=== PATIENT | female | born 2000 | race Caucasian/White ===

== ENCOUNTER → 2019-07-03 11:15 | Outpatient (BNVA) | payer SELFPAY | PROVIDERS: Family Provider Nurse Practitioner Family; PCP Nurse Practitioner Family; Visit Provider Nurse Practitioner Women's Health | DX: R10.2 Pelvic and perineal pain (principal); N34.3 Urethral syndrome, unspecified; R87.612 Low grade squamous intraepithelial lesion on cytologic smear of cervix (LGSIL); Z11.3 Encounter for screening for infections with a predominantly sexual mode of transmission | CPT/HCPCS: 87491; 87591; 87661 ==

== ENCOUNTER → 2019-07-19 13:06 | Outpatient (BNVA) | payer SELFPAY | PROVIDERS: Family Provider Nurse Practitioner Family; PCP Nurse Practitioner Family; Visit Provider Nurse Practitioner Women's Health | DX: R87.612 Low grade squamous intraepithelial lesion on cytologic smear of cervix (LGSIL) (principal); N92.0 Excessive and frequent menstruation with regular cycle | CPT/HCPCS: 76830 ==

== ENCOUNTER → 2020-03-31 10:03 | Outpatient (BNVA) | payer BC, MEDICAID, SELFPAY | PROVIDERS: Family Provider Nurse Practitioner Family; PCP Nurse Practitioner Family; Visit Provider Nurse Practitioner Women's Health | DX: O99.341 Other mental disorders complicating pregnancy, first trimester (principal); F32.9 Major depressive disorder, single episode, unspecified; Z78.9 Other specified health status; Z82.79 Family history of other congenital malformations, deformations and chromosomal abnormalities; Z83.2 Family history of diseases of the blood and blood-forming organs and certain disorders involving the immune mechanism | CPT/HCPCS: 81000 ==

== ENCOUNTER → 2020-04-14 11:02 | Outpatient (BNVA) | payer BC, MEDICAID, SELFPAY | PROVIDERS: Family Provider Nurse Practitioner Family; PCP Nurse Practitioner Family; Visit Provider Obstetrics & Gynecology | DX: O99.340 Other mental disorders complicating pregnancy, unspecified trimester (principal); F32.9 Major depressive disorder, single episode, unspecified; F41.9 Anxiety disorder, unspecified; G89.29 Other chronic pain | CPT/HCPCS: 80307; 81000; 85027; 86592; 86762; 86803; 86850; 86900; 87086; 87340; 87806 ==

== ENCOUNTER → 2020-04-27 11:00 | Outpatient (BNVA) | payer BC, MEDICAID, SELFPAY | PROVIDERS: Family Provider Nurse Practitioner Family; PCP Nurse Practitioner Family; Visit Provider Obstetrics & Gynecology | DX: Z34.01 Encounter for supervision of normal first pregnancy, first trimester (principal); R87.612 Low grade squamous intraepithelial lesion on cytologic smear of cervix (LGSIL); J45.909 Unspecified asthma, uncomplicated; M54.9 Dorsalgia, unspecified; G89.29 Other chronic pain; F41.9 Anxiety disorder, unspecified; F32.9 Major depressive disorder, single episode, unspecified; Z82.79 Family history of other congenital malformations, deformations and chromosomal abnormalities | CPT/HCPCS: 81000; 87491; 87591; 88175 ==

== ENCOUNTER → 2020-05-27 08:06 | Outpatient (BNVA) | payer BC, MEDICAID, SELFPAY | PROVIDERS: Family Provider Nurse Practitioner Family; PCP Nurse Practitioner Family; Visit Provider Nurse Practitioner Women's Health | DX: O99.340 Other mental disorders complicating pregnancy, unspecified trimester (principal); F41.9 Anxiety disorder, unspecified; O26.899 Other specified pregnancy related conditions, unspecified trimester; F32.9 Major depressive disorder, single episode, unspecified; M54.9 Dorsalgia, unspecified; G89.29 Other chronic pain; Z82.79 Family history of other congenital malformations, deformations and chromosomal abnormalities | CPT/HCPCS: 81000; 82105 ==

== ENCOUNTER → 2020-07-22 09:49 | Outpatient (BNVA) | payer BC, MEDICAID, SELFPAY | PROVIDERS: Family Provider Nurse Practitioner Family; PCP Nurse Practitioner Family; Visit Provider Nurse Practitioner Women's Health | DX: Z34.02 Encounter for supervision of normal first pregnancy, second trimester (principal); Z82.79 Family history of other congenital malformations, deformations and chromosomal abnormalities | CPT/HCPCS: 81000 ==

== ENCOUNTER → 2020-08-19 14:07 | Outpatient (BNVA) | payer BC, MEDICAID, SELFPAY | PROVIDERS: Family Provider Nurse Practitioner Family; PCP Nurse Practitioner Family; Visit Provider Obstetrics & Gynecology | DX: O36.60X0 Maternal care for excessive fetal growth, unspecified trimester, not applicable or unspecified (principal); J45.909 Unspecified asthma, uncomplicated; M54.9 Dorsalgia, unspecified; G89.29 Other chronic pain; F41.9 Anxiety disorder, unspecified; F32.9 Major depressive disorder, single episode, unspecified; O99.340 Other mental disorders complicating pregnancy, unspecified trimester | CPT/HCPCS: 81000; 82950; 85027 ==

== ENCOUNTER → 2020-09-03 13:30 | Outpatient (BNVA) | payer BC, MEDICAID, SELFPAY | PROVIDERS: Family Provider Nurse Practitioner Family; PCP Nurse Practitioner Family; Visit Provider Obstetrics & Gynecology | DX: O36.60X0 Maternal care for excessive fetal growth, unspecified trimester, not applicable or unspecified (principal); O99.013 Anemia complicating pregnancy, third trimester | CPT/HCPCS: 81000 ==

== ENCOUNTER → 2020-09-15 08:49 | Outpatient (BNVA) | payer BC, MEDICAID, SELFPAY | PROVIDERS: Family Provider Nurse Practitioner Family; PCP Nurse Practitioner Family; Visit Provider Obstetrics & Gynecology | DX: O99.013 Anemia complicating pregnancy, third trimester (principal); O36.60X0 Maternal care for excessive fetal growth, unspecified trimester, not applicable or unspecified | CPT/HCPCS: 81000 ==

== ENCOUNTER → 2020-09-30 13:04 | Outpatient (BNVA) | payer BC, MEDICAID, SELFPAY | PROVIDERS: Family Provider Nurse Practitioner Family; PCP Nurse Practitioner Family; Visit Provider Nurse Practitioner Women's Health | DX: O99.013 Anemia complicating pregnancy, third trimester (principal); O36.60X0 Maternal care for excessive fetal growth, unspecified trimester, not applicable or unspecified; J45.909 Unspecified asthma, uncomplicated; M54.9 Dorsalgia, unspecified; G89.29 Other chronic pain; F41.9 Anxiety disorder, unspecified; F32.9 Major depressive disorder, single episode, unspecified | CPT/HCPCS: 81000 ==

== ENCOUNTER → 2020-10-14 10:03 | Outpatient (BNVA) | payer BC, MEDICAID, SELFPAY | PROVIDERS: PCP Nurse Practitioner Family; Visit Provider Obstetrics & Gynecology | DX: O99.013 Anemia complicating pregnancy, third trimester (principal); O36.60X0 Maternal care for excessive fetal growth, unspecified trimester, not applicable or unspecified; J45.909 Unspecified asthma, uncomplicated; M54.9 Dorsalgia, unspecified; G89.29 Other chronic pain; F41.9 Anxiety disorder, unspecified; F32.9 Major depressive disorder, single episode, unspecified | CPT/HCPCS: 81000; 87081 ==

== ENCOUNTER → 2020-10-19 13:15 | Outpatient (BNVA) | payer BC, MEDICAID, SELFPAY | PROVIDERS: PCP Nurse Practitioner Family; Visit Provider Obstetrics & Gynecology | DX: O99.013 Anemia complicating pregnancy, third trimester (principal); O36.60X0 Maternal care for excessive fetal growth, unspecified trimester, not applicable or unspecified; D64.9 Anemia, unspecified; Z3A.00 Weeks of gestation of pregnancy not specified | CPT/HCPCS: 81000 ==

== ENCOUNTER → 2020-10-27 08:51 | Outpatient (BNVA) | payer BC, MEDICAID, SELFPAY | PROVIDERS: PCP Nurse Practitioner Family; Visit Provider Obstetrics & Gynecology | DX: Z34.80 Encounter for supervision of other normal pregnancy, unspecified trimester (principal) | CPT/HCPCS: 81000 ==

== ENCOUNTER → 2020-10-29 11:00 | Outpatient (BNVA) | payer BC, MEDICAID, SELFPAY | PROVIDERS: PCP Nurse Practitioner Family; Visit Provider Obstetrics & Gynecology | DX: Z34.02 Encounter for supervision of normal first pregnancy, second trimester (principal); Z20.822 Contact with and (suspected) exposure to COVID-19 | CPT/HCPCS: 87635 ==

== ENCOUNTER 2020-11-02 19:16 | Inpatient (IN) | payer BC, MEDICAID, SELFPAY ==
--- NOTE | 2020-10-07 13:56 | P.ANESASSM_ITS ---
Pre-Anesthetic Assessment Pre-Anesthetic Assessment: Height/Weight: Height 1.63 m Preop Diagnosis: IUP Proposed Procedure: Epidural Familial anesthetic complications: none Social: Social History: No alcohol and No tobacco Exam: Pre-Anes Outpt Exam: alert, oriented x 3, clear to auscultation bilaterally and regular rate & rhythm Airway: Cervical ROM: WNL MP: 3 Dentition: Full Pulmonary: Pulmonary: Asthma Musc/skel: Comments: L5-S1 fusion in 2014 and 2016 d/t spondylolisthesis? Anesthetic Plan: ASA status: 2 Anesthesia: Regional (specify below) Risk of > 500 ml blood loss (7ml/kg in children): Yes, adequate IV access and fluids planned Other Pertinent Information: patient desires natural childbirth, patient informed prior surgery may make placement of epidural more difficult or increase risk of PDPH PFSH Anesthesia PFSH: Medical History Anxiety and depression Diagnosed in 2019 when she went to [employer] school. She was on Cymbalta prior to the and got switched to fluoxetine at 8 weeks. She states that she is doing okay with 10 mg once a day. Asthma Diagnosed in the second grade. She uses albuterol inhalers as needed. Last use was in January 2021. Usually uses it a couple of times every month. 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 Has had 2 back surgery and periodically has back spasms and pain. She does not take anything for pain regularly other than ibuprofen and Tylenol as needed No pertinent past medical history Denies diabetes, asthma, hypertension, seizures, DVT/PE. PCP: Adelina Azar COLLECTION SPECIALIST Surgical History H/O foot surgery 2015--removal of glass shards after she stepped on a picture frame performed by Dr. Kamara History of appendectomy Open procedure via right lower quadrant incision at fourth grade History of back surgery X 2----> had rods and screws placed between L5 and S1 and spinal fusion performed by Dr. Reynolds first in April 2015 and then in September 2015. Family History Mother Hypertension Family/Other Breast cancer Maternal great aunt--dx age 40's Denies family history of Colon cancer Ovarian cancer Diabetes Heart disease Hyperlipidemia Family history of thyroid problem Uterine cancer Stroke Data Anesthesia Cardiac Studies: No Data to Display
[2020-11-02] VITALS (15 sets, daily range): BP systolic 118–141; BP diastolic 64–81; PULSE 76–101; RESP 16; TEMP 36.6; BMI 29.2
[2020-11-02 20:21] LABS: Basophils % 0.2 %; Eosinophils # 0.1 10^3/uL (0.0-0.8); Eosinophils % 0.7 %; Hematocrit 34.8 % (37.0-47.0); Hemoglobin 11.7 g/dL (11.5-15.3); Lymphocytes # 2.2 10^3/uL (0.8-4.8); Lymphocytes % 19.1 %; Mean Corpuscular HGB Conc 33.6 g/dL (30.0-36.0); Mean Corpuscular Hemoglobin 29.3 pg (28.0-34.0); Monocytes # 0.8 10^3/uL (0.2-0.9); Neutrophils # 8.16 10^3/uL (1.8-7.7); Neutrophils % 72.3 %; Nucleated Red Blood Cells % 0 %; Platelet Count 196 10^3/cmm (130-400); Red Cell Distribution Width 14.7 % (12.1-15.1); White Blood Count 11.3 10^3/uL (4.0-10.0)
[2020-11-02] MEDS: lactated ringers 500 ML 999 ML IV (20:41)
[2020-11-02] MEDS: dextrose 5%-lactated ringers 1,000 ML 125 ML IV (21:11)
[2020-11-02] MEDS: miSOPROStol 100 mcg tablet 25 MCG VAGINAL (21:56)
[2020-11-02] MEDS: lactated ringers 1,000 ML 999 ML IV (23:58)
[2020-11-03] VITALS (92 sets, daily range): BP systolic 103–151; BP diastolic 55–89; PULSE 61–102; RESP 16–18; TEMP 36.1–37.4; O2SAT 86–100
[2020-11-03] MEDS: oxytocin 30 UNIT/500 ML BAG IV (05:18)
[2020-11-03] MEDS: dextrose 5%-lactated ringers 1,000 ML 125 ML IV ×2 (05:18→11:09)
[2020-11-03] MEDS: fentaNYL 50 mcg/mL INJ 2mL IVP ×2 (07:32→08:53)
[2020-11-03] MEDS: lactated ringers 1,000 ML 999 ML IV ×2 (08:26→09:27)
--- NOTE | 2020-11-03 08:55 | ANES.PAUD2 ---
Pre-Anesthetic Update Pre-Anesthetic Assessment: Date of Surgery/Procedure: 11/03/20 Preop Diagnosis: IUP Any changes to Pre-Anesthetic Assessment?: No Labs Last 48hrs: Laboratory Results - last 48 hr 11/02/20 20:05 WBC 11.3 H RBC 4.00 L Hgb 11.7 Hct 34.8 L MCV 87.0 MCH 29.3 MCHC 33.6 RDW 14.7 Plt Count 196 MPV 11.0 H Neut % (Auto) 72.3 Lymph % (Auto) 19.1 [place] % (Auto) 7.0 Eos % (Auto) 0.7 Baso % (Auto) 0.2 Neut # (Auto) 8.16 H Lymph # (Auto) 2.2 [place] # (Auto) 0.8 Eos # (Auto) 0.1 Baso # (Auto) 0.0 Nucleated RBC % (a uto) 0 Nucleated RBCs # 0.0 Vitals: Temperature 97.0 F L 11/03/20 09:46 Pulse Rate 79 11/03/20 10:21 Respiratory Rate 18 11/03/20 08:53 Respiratory Effort Non-Labored 11/03/20 08:53 Respiratory Depth Normal 11/03/20 08:53 Respiratory Patter n 11/03/20 08:53 Blood Pressure 112/74 11/03/20 10:21 Pulse Oximetry 91 11/03/20 10:05 Oxygen Delivery Me thod 11/02/20 19:05 Exam: Pre-Anes Outpt Exam: alert, oriented x 3, clear to auscultation bilaterally and regular rate & rhythm Cardiac Studies: No Data to Display
--- NOTE | 2020-11-03 09:00 | ANES.PROC ---
Anesthesia Procedures Procedure/Date: 11/03/20 Epidural: Time Out Performed: Yes Consents Signed: Procedure Consent and NPO Consent Consent: from patient, risks and benefits reviewed and patient agrees to proceed Lumbar Level: L3-L4 Epidural position: sitting Epidural procedure: sterile prep of area, 1% lidocaine to numb the area, negative for paresthesia passed, neg for paresthesia, test dose given, 1.5% xylocaine 1:200k epi, placed PCEA, no systemic response, sterile dressing applied, L.U.D. no apparent complications and 0.2% Ropiavacaine @ mls/hr (13)
[2020-11-03] MEDS: ondansetron 2 mg/ML SDV 2 mL 4 MG IVP (12:37)
[2020-11-03] MEDS: lidocaine 2% INJ 20 mL INJECTION (15:14)
[2020-11-03] MEDS: methylergonovine 0.2 mg/mL INJ 1 mL IM (15:25)
[2020-11-03] MEDS: miSOPROStol 200 mcg Tablet 800 MCG PR (15:25)
--- NOTE | 2020-11-03 16:05 | P.PCNOB_ITS ---
Delivery Note: Date of delivery: November 03, 2020 - PRE-DELIVERY DIAGNOSIS: 20-year-old 1 para 0 at 39 weeks and 1 day Elective induction of labor GBS negative, Covid negative macrosomia Mild intermittent asthma-asymptomatic anxiety and depression on Prozac Anemia on iron POST-DELIVERY DIAGNOSIS: Vaginal delivery on 11/03/2020 PROCEDURE: Vaginal delivery on 11/03/2020 ANESTHESIA: Epidural anesthesia, 2% lidocaine DELIVERING PHYSICIAN: Earnest Hammer FACOG PRE-DELIVERY COURSE: Ms. Klein is a 20-year-old 1 para 0 who presented to labor and delivery on 11/02/2020 for scheduled elective induction of labor at 39 weeks and 0 days. On initial presentation cervix was noted to be 2 to 3 cm, 70% and -2 station cephalic with a category 1 tracing. She had irregular contractions. Induction was started with Cytotec placed at 9:30 PM. At 2 AM she had made minimal cervical change and was az every 3 to 5 minutes too frequently to place another Cytotec. She was observed for 2 more hours and made some cervical change to 3 cm 80% and -2 station. She was given a therapeutic rest f or 2 hours and Pitocin was started at 5:30 AM. Pitocin was titrated to maximum of 7 mIU and with this she started to have regular contractions. She had spontaneous rupture of membranes at 7:17 AM with clear fluid and at that time exam showed that she was 4 cm 80% and -2 station. She grew uncomfortable after this and had regular contractions and an epidural was placed after which she was comfortable. She was 7 cm at 10 AM and fully dilated at 1 PM. She had a category 1 tracing she was allowed to labor down given that she was very comfortable and tracing was reactive until she was +2 station. She was then set up in lithotomy position ready to push DELIVERY NOTE: She was set up in lithotomy position and was pushing effectively. She was noted to be +3 station and continued pushing well. The head delivered in GURMEET position, no nuchal cord was present. The shoulders and rest of the body followed with her next push. The baby's mouth and nose were suctioned and the baby was placed on the mother's belly. Once cord pulsations stopped the cord was clamped and cut. The placenta delivered spontaneously intact with membranes and was discarded. The fundus was noted to be firm and well contracted with stimulation however once uterine massage was stopped the fundus became less firm. 800 mcg of Cytotec was placed per rectum and she received a single dose of Methergine and continued uterine massage after which tone improved and lower uterine segment was less boggy. The vagina and cervix were inspected and no cervical or sulcal lacerations were noted. The perineum was noted to be intact. She did have a periclitoral tear at 12 o'clock position which did not involve the urethra and this was repaired with 3-0 Vicryl on an SH needle without any difficulty. Good reapproximation and hemostasis was achieved. Baby girl, Brandon Mills born at 3:03 PM on 11/03/2020 with 8/9, weighing 8 pounds 7 ounces, 3830 g, 21 inches long. Placenta was delivered spontaneously intact with membranes at 3:10 PM. Cotyledons were intact , centrally inserted umbilical cord with 3 vessels noted. Estimated blood loss 450 mL. Complications-none, both baby and mother were left to recover in a stable condition. This documentation was created by [employer] plating machine operator software (known for inherent plating machine operator error). Every effort was made to assure accuracy of plating machine operator. Any obvious errors or omissions should be clarified with the author of the document. Coding Level of Care Code Acute Professor/Nurse Anesthetist for Chg Fwd History History History 1 Term 1 Miscarriages/Ectopic 0 0 Living Children 1 Other History: 1, Para 1001 X 1 1--> 11/03/2020, full-term vaginal delivery [place] [facility] [place] Baby girl. Brandon Mills weighing 8 pounds 7 ounces delivered, with an intact perineum and a periclitoral tear. Patient had some mild uterine atony requiring 1 dose of Methergine and Cytotec and bleeding responded well to this.
[2020-11-03] MEDS: docusate sodium 100 mg Capsule PO (17:41)
[2020-11-03] MEDS: HYDROcodone-acetaminophen 5-325 mg Tablet PO (17:41)
[2020-11-03] MEDS: ibuprofen 800 mg tablet PO (21:09)
[2020-11-04 01:05] VITALS: BP 131/79; PULSE 77; RESP 16
[2020-11-04 04:03] LABS: Hematocrit 32.9 % (37.0-47.0); Hemoglobin 11.1 g/dL (11.5-15.3); Mean Corpuscular HGB Conc 33.7 g/dL (30.0-36.0); Mean Corpuscular Hemoglobin 28.9 pg (28.0-34.0); Mean Corpuscular Volume 85.7 fl (81-99); Mean Platelet Volume 11.1 fL (7.4-10.4); Platelet Count 150 10^3/cmm (130-400); Red Blood Count 3.84 10^6/uL (4.1-5.3); Red Cell Distribution Width 14.9 % (12.1-15.1); White Blood Count 15.1 10^3/uL (4.0-10.0)
[2020-11-04 05:15] VITALS: BP 136/80; PULSE 86; RESP 16; TEMP 37
--- NOTE | 2020-11-04 07:06 | ANE.PACU2 ---
Inpatient post-anesthesia follow up: Airway intact: Yes Vital signs: Temperature 97.9 F Pulse Rate 76 Respiratory Rate 16 Blood Pressure 126/81 Pulse Oximetry 96 Oxygen Delivery Me thod Room Air Oxygen Flow Rate Fraction of Inspir ed Oxygen Hydration adequate: Yes Nausea and vomiting: No Pain level: 1 Mental status: Baseline
--- NOTE | 2020-11-04 07:58 | PC.NURSE ---
note This first time mom is choosing to pump and feed with bottle. She reports pumping is going well she has returned enough to feed with syringe already. Encouraged 8-12 pump sessions in 24 hours. She has no questions. Provided contact information.
[2020-11-04] MEDS: docusate sodium 100 mg Capsule PO (09:24)
[2020-11-04] MEDS: ibuprofen 800 mg tablet PO (09:24)
[2020-11-04] MEDS: prenatal vitamin Capsule 1 CAP PO (09:24)
[2020-11-04 09:25] VITALS: BP 117/68; PULSE 82; RESP 16; TEMP 36.7; O2SAT 96
--- NOTE | 2020-11-04 12:42 | PM.OBGYDC ---
Discharge Providers WAX BLENDER Date of Admission: 11/02/20 19:16 Date of Discharge: 11/04/20 Attending Provider at Admission: Earnest Olmstead MD Attending Provider at Discharge: Earnest Olmstead MD Primary Care Provider: PRE-DELIVERY DIAGNOSIS: 20-year-old 1 para 0 at 39 weeks and 1 day Elective induction of labor GBS negative, Covid negative macrosomia Mild intermittent asthma-asymptomatic anxiety and depression on Prozac Anemia on iron POST-DELIVERY DIAGNOSIS: Vaginal delivery on 11/03/2020 PROCEDURE: Vaginal delivery on 11/03/2020 ANESTHESIA: Epidural anesthesia, 2% lidocaine DELIVERING PHYSICIAN: Earnest Hammer FACOG PRE-DELIVERY COURSE: Ms. Klein is a 20-year-old 1 para 0 who presented to labor and delivery on 11/02/2020 for scheduled elective induction of labor at 39 weeks and 0 days. On initial presentation cervix was noted to be 2 to 3 cm, 70% and -2 station cephalic with a category 1 tracing. She had irregular contractions. Induction was started with Cytotec placed at 9:30 PM. At 2 AM she had made minimal cervical change and was az every 3 to 5 minutes too frequently to place another Cytotec. She was observed for 2 more hours and made some cervical change to 3 cm 80% and -2 station. She was given a therapeutic rest for 2 hours and Pitocin was started at 5:30 AM. Pitocin was titrated to maximum of 7 mIU and with this she started to have regular contractions. She had spontaneous rupture of membranes at 7:17 AM with clear fluid and at that time exam showed that she was 4 cm 80% and -2 station. She grew uncomfortable after this and had regular contractions and an epidural was placed after which she was comfortable. She was 7 cm at 10 AM and fully dilated at 1 PM. She had a category 1 tracing she was allowed to labor down given that she was very comfortable and tracing was reactive until she was +2 station. She was then set up in lithotomy position ready to push DELIVERY NOTE: She was set up in lithotomy position and was pushing effectively. She was noted to be +3 station and continued pushing well. The head delivered in GURMEET position, no nuchal cord was present. The shoulders and rest of the body followed with her next push. The baby's mouth and nose were suctioned and the baby was placed on the mother's belly. Once cord pulsations stopped the cord was clamped and cut. The placenta delivered spontaneously intact with membranes and was discarded. The fundus was noted to be firm and well contracted with stimulation however once uterine massage was stopped the fundus became less firm. 800 mcg of Cytotec was placed per rectum and she received a single dose of Methergine and continued uterine massage after which tone improved and lower uterine segment was less boggy. The vagina and cervix were inspected and no cervical or sulcal lacerations were noted. The perineum was noted to be intact. She did have a periclitoral tear at 12 o'clock position which did not involve the urethra and this was repaired with 3-0 Vicryl on an SH needle without any difficulty. Good reapproximation and hemostasis was achieved. Baby girlBrandon born at 3:03 PM on 11/03/2020 with 8/9, weighing 8 pounds 7 ounces, 3830 g, 21 inches long. Placenta was delivered spontaneously intact with membranes at 3:10 PM. Cotyledons were intact , centrally inserted umbilical cord with 3 vessels noted. Estimated blood loss 450 mL. Complications-none, both baby and mother were left to recover in a stable condition. HOSPITAL COURSE: She underwent an uncomplicated vaginal delivery on 11/03/2020. She did well on day 0 and was ambulating well, tolerating regular diet, voiding freely, passing flatus. She was breast-feeding by exclusively pumping without difficulty and bonding well with her daughter. Pain was well-controlled with by mouth pain medication. She denied nausea, vomiting, fever, chills, shortness of breath, leg pain. She had moderate vaginal bleeding. On day # 1 she continued to do well with stable vital signs and stable hemoglobin at 11.1. She was discharged home on day 1 in a stable condition, as she desired early discharge. Warning signs for endometritis, mastitis, DVT/PE were reviewed with her. Post delivery activity restrictions were also reviewed with her at all her questions were answered to her satisfaction. Plans on using control pills for contraception which will be started at her 6-week visit EXAM AT DISCHARGE: Gen.: No acute distress Heart: S1-S2 heard, regular rate and rhythm Lungs: Clear to auscultation bilaterally Abdomen: Soft, fundus firm below umbilicus, Legs: No calf tenderness, trace bilateral pitting pedal edema. CONDITION AT DISCHARGE: Stable This documentation was created by [employer] business english instructor software (known for inherent business english instructor error). Every effort was made to assure accuracy of business english instructor. Any obvious errors or omissions should be clarified with the author of the document. Reason for Visit Reason for Visit: ELVIRA 11/09/2020 Information Peripartum Data: Delivery Method: Vaginal Physical Exam Urinary Catheter Management^: Sinclair: Cath Placed During This Visit: yes Urinary Catheter Date of Insertion: 11/03/20 Urinary Catheter Time of Insertion: 10:05 Discharge Data Data Completed and Pending: Labs from last 24 hours 11/04/20 03:57 WBC 15.1 H RBC 3.84 L Hgb 11.1 L Hct 32.9 L MCV 85.7 MCH 28.9 MCHC 33.7 RDW 14.9 Plt Count 150 MPV 11.1 H Vitals: Last Vital Signs Temp 98.1 F 11/04/20 09:25 Pulse 82 11/04/20 09:25 Resp 16 11/04/20 09:25 BP 117/68 11/04/20 09:25 Pulse Ox 96 11/04/20 09:25 Discharge Plan Discharge Patient Disposition: Home Condition: Stable Prescriptions: New docusate sodium 100 mg Capsule 100 mg PO BID PRN (Reason: constipation) Qty: 30 RF: 0 ibuprofen 800 mg tablet 800 mg PO Q8H Qty: 30 RF: 0 Continued prenat.vits,kiel,[id number] Tablet 1 tab PO DAILY RF: 0 folic acid 0.8 mg capsule 1.6 mg PO DAILY RF: 0 fluoxetine 10 mg capsule 10 mg PO DAILY Qty: 30 RF: 2 Discontinued ferrous sulfate 325 mg (65 mg iron) tablet,delayed release (DR/EC) 325 mg PO BID RF: 0 Discharge Orders: Discharge Order (Routine); Ordered 11/04/20 Ordered By: Earnest Olmstead Referrals: Earnest Olmstead MD [Physician] - (6-week with Dr. Hammer) Patient Instructions: Opioid Safety Activity Restrictions/Additional Instructions: No heavy lifting for 6 weeks, pelvic rest for 6 weeks, 6-week with Dr. Hammer Discharge Attestations WAX BLENDER Time Spent in Discharge Care*: greater than 30 min Coding Level of Care Code Acute Corporate Legal Manager for Rosalino Boucher
[2020-11-04 17:10] VITALS: BP 126/81; PULSE 76; RESP 16; TEMP 36.6
== END 2020-11-04 17:25 | disposition home or self-care (01) | DRG 768 ==
PROVIDERS: Admitting Provider Obstetrics & Gynecology; PCP Nurse Practitioner Family; Visit Provider Obstetrics & Gynecology
DX: O99.344 Other mental disorders complicating childbirth (principal); Z37.0 Single live birth; F41.8 Other specified anxiety disorders; O36.63X0 Maternal care for excessive fetal growth, third trimester, not applicable or unspecified; O99.02 Anemia complicating childbirth; D64.9 Anemia, unspecified; O71.89 Other specified obstetric trauma; Z3A.39 39 weeks gestation of pregnancy; J45.20 Mild intermittent asthma, uncomplicated; G89.29 Other chronic pain; M54.9 Dorsalgia, unspecified; O75.89 Other specified complications of labor and delivery
CPT/HCPCS: 36415; 51702; 59025; 59409; 81000; 85025; 85027; 96372; 96374; 96376; J2210; J2405; J2795; J3010

== ENCOUNTER → 2024-11-29 09:20 | Outpatient (BNVA) | payer BC, MEDICAID, SELFPAY | PROVIDERS: PCP Clinical Nurse Specialist Adult Health; Visit Provider Clinical Nurse Specialist Adult Health | DX: R77.9 Abnormality of plasma protein, unspecified (principal) | CPT/HCPCS: 80053 ==

== ENCOUNTER 2024-12-02 09:05 | Outpatient (CLI) | payer SELFPAY ==
--- NOTE | 2024-12-02 09:23 | XR_ITS ---
WS: [id number] Exam: XR thoracic spine 3V* [id number] Date/Time of Exam: 12/02/2024 9:23 AM Reason For Exam: M54.6 - Pain in thoracic spine No acute fracture or malalignment. Disc spaces are preserved. Normal paraspinal soft tissues. Slight levoscoliosis of the upper T-spine. XR/XR thoracic spine 3V* [id number] IMPRESSION: 1. No fracture or malalignment. Very slight scoliosis.
--- NOTE | 2024-12-02 09:23 | XR_ITS ---
WS: [id number] Exam: XR lumbar spine 2-3V* [id number] Date/Time of Exam: 12/02/2024 9:23 AM Reason For Exam: M54.50 - Low back pain, unspecified DLP: Comparison 09/15/2015. No fracture noted. 7 mm anterolisthesis of L5 on S1 noted. Posterior fusion at L5-S1 with pedicle screws and posterior rods. There is narrowing of the L5-S1 disc. Remaining discs are preserved. Remaining lumbar vertebra appear normal. No sign of hardware complication. L5-S1 laminectomy. XR/XR lumbar spine 2-3V* [id number] IMPRESSION: 1. 7 mm anterolisthesis of L5 on S1. 2. Status post L5-S1 laminectomy with fusion. 3. The remainder of the lumbar spine appears normal.
== END 2024-12-02 09:06 | disposition home or self-care (01) ==
PROVIDERS: PCP Clinical Nurse Specialist Adult Health; Visit Provider Clinical Nurse Specialist Adult Health
DX: M54.50 Low back pain, unspecified (principal); M54.6 Pain in thoracic spine; M41.84 Other forms of scoliosis, thoracic region; M43.17 Spondylolisthesis, lumbosacral region; Z98.890 Other specified postprocedural states
CPT/HCPCS: 72072; 72100

== ENCOUNTER 2024-12-11 08:45 | Outpatient (CLI) | payer SELFPAY ==
--- NOTE | 2024-12-11 08:45 | MR_ITS ---
WS: [id number] MRI LUMBAR SPINE NONCONTRAST HISTORY: M54.50 - Low back pain, unspecified COMPARISON: Lumbar spine radiograph 12/02/2024 and prior MRI 12/24/2014 TECHNIQUE: Sagittal and axial multisequence imaging is submitted. Status post posterior lumbar fusion at L5-S1. L5 anterolisthesis by 6.8 mm. Mild disc desiccation at L5-S1. No fractures or marrow edema. Conus terminates normally at L1-2 disc level. L1-L2: Normal. L2-L3: Mild ligamentum flavum and facet arthritis. No stenosis. L3-L4: Mild annular disc bulging with mild ligamentum flavum and facet arthritis. Small amount of fluid in the facet joints. There is mild disc contact on the exiting L3 nerve roots. Progressed since this prior study. L4-L5: Diffuse annular disc bulging with a broad-based central disc protrusion, ligamentum flavum hypertrophy and facet arthritis. LEFT foraminal disc protrusion versus bulging. Moderate to severe LEFT foraminal stenosis has progressed since 2014. There is significant contact on the LEFT exiting L4 nerve root. Additional mild RIGHT foraminal stenosis but stable. Mild subarticular recess encroachment by disc disease. L5-S1: Mild unroofing of the disc by anterolisthesis of L5. Moderate bilateral foraminal stenosis greater on the LEFT. Mild progression since 2014. Paravertebral soft tissues are negative. The uterus is slightly enlarged with peripheral vascularity, likely from prior pregnancies. MR/MR lumbar spine wo con* [id number] IMPRESSION: 1. Status post posterior lumbar fusion at L5-S1 since the prior study from 201 5. 2. Stable grade 1 anterolisthesis of L5, 6.8 mm. 3. Mild disc contact on the exiting L3 nerve roots has progressed since the pr ior study. 4. Moderate to severe LEFT foraminal stenosis with progression since the prior study. Significant disc contact on the exiting LEFT L4 nerve root. Additional mild RIGHT foraminal and subarticular recess encroachment at L4-5. 5. Moderate bilateral foraminal stenosis at L5-S1 with mild progression since 2014.
== END 2024-12-11 08:46 | disposition home or self-care (01) ==
LOC: RAD 08:46
PROVIDERS: PCP Clinical Nurse Specialist Adult Health; Visit Provider Clinical Nurse Specialist Adult Health
DX: M51.361 Other intervertebral disc degeneration, lumbar region with lower extremity pain only (principal); M24.28 Disorder of ligament, vertebrae; M47.816 Spondylosis without myelopathy or radiculopathy, lumbar region; M25.48 Effusion, other site; M51.26 Other intervertebral disc displacement, lumbar region; M46.96 Unspecified inflammatory spondylopathy, lumbar region; M48.061 Spinal stenosis, lumbar region without neurogenic claudication; M43.17 Spondylolisthesis, lumbosacral region; M48.07 Spinal stenosis, lumbosacral region; M51.370 Other intervertebral disc degeneration, lumbosacral region with discogenic back pain only
CPT/HCPCS: 72148